=== PATIENT | female | born 1955 | race Caucasian/White ===

== ENCOUNTER → 2016-11-25 | Outpatient (CLI) | payer OTHER ==
[~2016-11-25] MED LIST: BETAMETHASONE 6 MG/ML, 5ML IM ONE; LIDOCAINE 1%, 20ML ONE; OMNIPAQUE 300 MG/ML, 10ML VIAL ONE; ROPivacaine/PF 0.2%, 10 ML ONE
== END | disposition home or self-care (01) ==
LOC: RAD 09:12
PROVIDERS: ATTEND Orthopaedic Surgery Adult Reconstructive Orthopaedic Surgery
DX: M16.11 Unilateral primary osteoarthritis, right hip (principal); M25.751 Osteophyte, right hip
CPT/HCPCS: 77002; J0702; J3490; Q9967; J2795

== ENCOUNTER 2017-01-16 05:36 | Inpatient (IN) | payer OTHER ==
[2017-01-13 15:41] LABS: HEMATOCRIT 41.4 % (34.6-47.8); HEMOGLOBIN 14.1 g/dL (11.7-16.4); WHITE BLOOD COUNT 6.8 x10^3/uL (3.4-10)
[2017-01-13 15:52] LABS: BLOOD UREA NITROGEN 9 mg/dL (7-18)
[2017-01-13 15:56] LABS: ASPARTATE AMINO TRANSFERASE 18 U/L (15-37)
[~2017-01-16] VITALS: Ht 167.6 cm; Wt 77.3 kg
[~2017-01-16 05:36] MED LIST changes: -BETAMETHASONE 6 MG/ML, 5ML IM ONE; -LIDOCAINE 1%, 20ML ONE; +No meds per pt.; -OMNIPAQUE 300 MG/ML, 10ML VIAL ONE; -ROPivacaine/PF 0.2%, 10 ML ONE
[2017-01-16] MEDS ORDERED: LACTATED RINGERS 1,000 ML IV SCH (06:08)
[2017-01-16] MEDS ORDERED: VANCOMYCIN PER PHARMACY MC STA (06:15)
[2017-01-16] MEDS ORDERED: FENTANYL PF 100 MCG/2ML ONE ×3 (06:16→10:20)
[2017-01-16] MEDS ORDERED: MIDAZOLAM 1 MG/ML, 2ML ONE ×2 (06:16→06:54)
[2017-01-16] MEDS ORDERED: PROPOFOL 50 ML ONE (06:16)
[2017-01-16] MEDS ORDERED: LIDOCAINE-MPF 2% ,5ML ONE (06:21)
[2017-01-16] MEDS ORDERED: DEXAMETHASONE 4 MG/ML, 1ML ONE ×2 (06:21→06:54)
[2017-01-16] MEDS ORDERED: ONDANSETRON 2MG/ML, 2ML ONE ×3 (06:21→10:20)
[2017-01-16] MEDS ORDERED: PROPOFOL 10 MG/ML, 20ML ONE (06:21)
[2017-01-16] MEDS ORDERED: CEFAZOLIN 1,000 MG ONE ×2 (06:21→06:54)
[2017-01-16] MEDS ORDERED: TRANEXAMIC ACID 100 MG/ML, 10ML ONE ×2 (06:23→06:24)
[2017-01-16] MEDS ORDERED: KETOROLAC 60 MG/2 ML ONE (06:23)
[2017-01-16] MEDS ORDERED: ROPIvacaine/PF 0.5%, 30 ML ONE (06:24)
[2017-01-16] MEDS ORDERED: EPINEPHRINE 1 MG/ML, 1ML ONE (06:24)
[2017-01-16] MEDS ORDERED: SODIUM CHLORIDE 0.9% 100 ML ONE (06:24)
[2017-01-16] MEDS ORDERED: BISACODYL 10 MG SUPP PR PRN (06:30)
[2017-01-16] MEDS ORDERED: ZOLPIDEM 5MG TABLET PO PRN (06:30)
[2017-01-16] MEDS ORDERED: VANCOMYCIN 1,500 MG in SODIUM CHLORIDE 0.9% 250 ML IV ONE (06:30)
[2017-01-16] MEDS ORDERED: DIPHENHYDRAMINE 50 MG CAPSULE PO PRN (06:30)
[2017-01-16] MEDS ORDERED: SCOPOLAMINE PATCH, 1.5MG PATCH.TD72 TD ONE ×2 (06:30→06:41)
[2017-01-16] MEDS ORDERED: ONDANSETRON 2MG/ML, 2ML IV PRN (06:30)
[2017-01-16] MEDS ORDERED: ONDANSETRON 4 MG TABLET PO PRN (06:30)
[2017-01-16] MEDS ORDERED: SENNA/DOCUSATE TABLET PO PRN (06:30)
[2017-01-16] MEDS ORDERED: MAGNESIUM HYDROXIDE 8%, 30ML UDC PO PRN (06:30)
[2017-01-16] MEDS ORDERED: ACETAMINOPHEN 650 MG/20.3 ML UDC PO PRN (06:30)
[2017-01-16] MEDS ORDERED: HYDROcodone/APAP 5/325 TABLET PO PRN (06:30)
[2017-01-16] MEDS ORDERED: ACETAMINOPHEN 500 MG TABLET PO STA (06:38)
[2017-01-16] MEDS ORDERED: FAMOTIDINE 20 MG TABLET PO STA (06:38)
[2017-01-16] MEDS ORDERED: SCOPOLAMINE PATCH, 1.5MG PATCH.TD72 TD STA (06:38)
[2017-01-16] MEDS ORDERED: OxyconTIN ER 10 MG TAB.ER PO STA (06:38)
[2017-01-16] MEDS ORDERED: PROPOFOL 10 MG/ML, 50ML ONE (06:54)
[2017-01-16] MEDS ORDERED: PHENYLEPHRINE 10 MG/ML ONE (06:54)
[2017-01-16] MEDS ORDERED: MIDAZOLAM 1 MG/ML, 2ML IV PRN (07:30)
[2017-01-16] MEDS ORDERED: ACETAMINOPHEN 325 MG TABLET PO PRN (07:30)
[2017-01-16] MEDS ORDERED: PROMETHAZINE 25 MG/ML, 1ML IV PRN (07:30)
[2017-01-16] MEDS ORDERED: MEPERIDINE/PF 25MG/0.5ML IVPush PRN (07:30)
[2017-01-16] MEDS ORDERED: ALBUTEROL/IPRATROPIUM 2.5MG/0.5MG, 3 ML NPPB PRN (07:30)
[2017-01-16] MEDS ORDERED: LABETALOL 5MG/ML, 20ML IV PRN (07:30)
[2017-01-16] MEDS ORDERED: OXYcodone 5 MG/5 ML ORAL.SOL UDC PO PRN (07:30)
[2017-01-16] MEDS ORDERED: hydrALAzine 20 MG/ML, 1ML IV PRN (07:30)
[2017-01-16] MEDS ORDERED: ONDANSETRON 2MG/ML, 2ML IVPush PRN (07:30)
[2017-01-16] MEDS ORDERED: DIAZEPAM 5 MG/ML, 2ML IVPush PRN (07:30)
[2017-01-16] MEDS ORDERED: HYDROmorphone 1 MG/ML, 1ML IV PRN (07:30)
[2017-01-16] MEDS ORDERED: OXYcodone 5 MG/5 ML ORAL.SOL UDC ONE (10:20)
[2017-01-16] MEDS: FENTANYL PF 100 MCG/2ML IV PRN ×2 (10:25→10:34)
[2017-01-16] MEDS: OXYcodone IR 5MG TABLET PO PRN ×3 (13:42→22:24)
[2017-01-16] MEDS: NS + 20MEQ KCL 1,000 ML IV SCH ×2 (16:27→18:53)
[2017-01-16] MEDS: CEFAZOLIN PMX 2GM/50ML 50 ML IVPB SCH (18:32)
[2017-01-16] MEDS: ASPIRIN 81 MG TABLET EC PO SCH (18:33)
[2017-01-16] MEDS: DOCUSATE 100 MG CAPSULE PO SCH (20:32)
[2017-01-16 21:05] VITALS: BP 98/64
[2017-01-17 00:32] VITALS: BP 106/60
[2017-01-17] MEDS: CEFAZOLIN PMX 2GM/50ML 50 ML IVPB SCH (01:48)
[2017-01-17] MEDS: OXYcodone IR 5MG TABLET PO PRN ×4 (03:30→16:27)
[2017-01-17 04:30] VITALS: BP 109/49
[2017-01-17 05:18] LABS: HEMOGLOBIN 11.6 g/dL (11.7-16.4)
[2017-01-17] MEDS: ASPIRIN 81 MG TABLET EC PO SCH (05:58)
[2017-01-17] MEDS ORDERED: DEXAMETHASONE 4 MG/ML, 1ML IVPush SCH (06:00)
[2017-01-17 07:20] VITALS: BP 110/74
[2017-01-17] MEDS: NS + 20MEQ KCL 1,000 ML IV SCH (07:23)
[2017-01-17] MEDS: DOCUSATE 100 MG CAPSULE PO SCH (07:27)
[2017-01-17] MEDS ORDERED: ASPI-496 PO (11:37)
[2017-01-17] MEDS ORDERED: DOCU-131 PO (11:38)
[2017-01-17] MEDS ORDERED: ACET650S21 PO (11:39)
[2017-01-17] MEDS ORDERED: TRAM50TA2 PO (11:41)
[2017-01-17] MEDS ORDERED: OXYC5TAB2 PO (11:41)
[2017-01-17] MEDS ORDERED: CELE200C PO (11:42)
[2017-01-17 15:36] VITALS: BP 119/71
== END 2017-01-17 17:10 | disposition home or self-care (01) | DRG 470 ==
LOC: ORIP 05:36 → 4NOR 10:57
PROVIDERS: ADMIT Orthopaedic Surgery; ATTEND Orthopaedic Surgery
PROC: 0SR90JZ Replacement of Right Hip Joint with Synthetic Substitute, Open Approach (ICD-10-PCS; principal; 2017-01-16 15:30)
DX: M16.11 Unilateral primary osteoarthritis, right hip (principal); Z96.641 Presence of right artificial hip joint; J45.909 Unspecified asthma, uncomplicated; Z88.6 Allergy status to analgesic agent; Z88.8 Allergy status to other drugs, medicaments and biological substances
CPT/HCPCS: 36415; 72170; 76001; 80053; 83036; 85014; 85018; 85025; 85610; 85730; 86850; 86900; 87081; 93005; C1713; J0171; J0690; J1100; J1885; J2250; J2405; J2704; J2795; J3010; J3480; J3490; C1776; J2370; J7120

== ENCOUNTER 2017-05-21 01:14 | Emergency (ER) | payer OTHER ==
[~2017-05-21] VITALS: Ht 167.6 cm; Wt 81.7 kg
[~2017-05-21 01:14] MED LIST changes: +ACET650S21 PO; +ASPI-496 PO; +CELE200C PO; +DOCU-131 PO; +OXYC5TAB2 PO; +TRAM50TA2 PO
[2017-05-21 01:17] VITALS: BP 152/74
[2017-05-21] MEDS ORDERED: LIDOCAINE-MPF 1%, 5ML ONE (01:29)
[2017-05-21] MEDS ORDERED: DIPH,PERTUSS(ACELL),TET VAC/PF 0.5 ML IM-VACC ONE ×2 (02:18→02:30)
[2017-05-21] MEDS ORDERED: BACITRACIN ZINC OINT 500U/GM, 0.9 GM ONE ×2 (02:32→02:39)
== END 2017-05-21 02:41 | disposition home or self-care (01) ==
LOC: ED 02:30
DX: S61.012A Laceration without foreign body of left thumb without damage to nail, initial encounter (principal); W25.XXXA Contact with sharp glass, initial encounter; Y93.G1 Activity, food preparation and clean up; Y99.8 Other external cause status; Y92.009 Unspecified place in unspecified non-institutional (private) residence as the place of occurrence of the external cause
CPT/HCPCS: 12041; 90471; 90715

== ENCOUNTER 2018-08-27 09:03 | Outpatient (CLI) | payer OTHER ==
[2018-08-27 09:14] LABS: BASOPHILS # (AUTO) 0.03 x10^3/uL (0-0.1); BASOPHILS % (AUTO) 1 % (0-1); EOSINOPHILS # (AUTO) 0.15 x10^3/uL (0-0.4); EOSINOPHILS % (AUTO) 4 % (1-7); LYMPHOCYTES # (AUTO) 1.41 x10^3/uL (1-3.4); LYMPHOCYTES % (AUTO) 35 % (22-44); MD NO; MEAN CORPUSCULAR HEMOGLOBIN 31.4 pg (27.0-34.8); MEAN CORPUSCULAR HGB CONC 33.6 g/dL (32.4-35.8); MEAN CORPUSCULAR VOLUME 93.2 fL (80-100); MEAN PLATELET VOLUME 8.2 fL (7.4-10.4); MONOCYTES # (AUTO) 0.51 x10^3/uL (0.2-0.8); MONOCYTES % (AUTO) 13 % (2-9); NEUTROPHILS # (AUTO) 1.94 x10^3/uL (1.8-6.8); NEUTROPHILS % (AUTO) 48 % (42-75); PLATELET COUNT 308 x10^3/uL (130-400); RED BLOOD COUNT 4.41 x10^6/uL (3.82-5.3); RED CELL DISTRIBUTION WIDTH 13.2 % (9.6-15.2)
[2018-08-27 09:22] LABS: ALANINE AMINOTRANSFERASE 23 U/L (12-78); ALBUMIN 4.2 g/dL (3.4-5.0); ANION GAP 6 mmol/L (5-15); CALCIUM 8.8 mg/dL (8.5-10.1); CHLORIDE 103 mmol/L (98-107); CREATININE 0.88 mg/dL (0.55-1.02)
[2018-08-27 09:25] LABS: ALKALINE PHOSPHATASE 65 U/L (45-117); BILIRUBIN,TOTAL 0.8 mg/dL (0.2-1.0); CHOL/HDL RATIO 3.2; CHOLESTEROL, TOTAL 209 mg/dL (140-239); HDL CHOL % 32 % (28-40); HDL CHOLESTEROL (DIRECT) 66 mg/dL (40-60); LDL CHOLESTEROL,CALCULATED 117 mg/dL (54-169); LDL/HDL RATIO 1.8 (0.5-3.0); TOTAL PROTEIN 7.4 g/dL (6.4-8.2); TRIGLYCERIDES 132 mg/dL (50-200); VLDL CHOLESTEROL 26 mg/dL (0-25)
== END 2018-08-27 23:59 | disposition home or self-care (01) ==
LOC: LAB 09:03
PROVIDERS: ATTEND Internal Medicine
DX: J20.9 Acute bronchitis, unspecified (principal); E78.00 Pure hypercholesterolemia, unspecified; M54.9 Dorsalgia, unspecified
CPT/HCPCS: 36415; 80053; 80061; 85025

== ENCOUNTER → 2020-01-30 | Outpatient (CLI) | payer OTHER | END | disposition home or self-care (01) | LOC: CFH 13:33 | PROVIDERS: ATTEND Internal Medicine | DX: Z12.31 Encounter for screening mammogram for malignant neoplasm of breast (principal) | CPT/HCPCS: 77063; 77067 ==

== ENCOUNTER → 2020-03-09 | Outpatient (CLI) | payer OTHER ==
[2020-03-09 08:42] LABS: ALANINE AMINOTRANSFERASE 24 U/L (12-78); ANION GAP 5 mmol/L (5-15); CHLORIDE 105 mmol/L (98-107); CHOLESTEROL, TOTAL 231 mg/dL (140-239); CREATININE 1.06 mg/dL (0.55-1.02)
[2020-03-09 08:44] LABS: ALKALINE PHOSPHATASE 61 U/L (45-117); BILIRUBIN,TOTAL 1.2 mg/dL (0.2-1.0); CHOL/HDL RATIO 3.1; HDL CHOL % 32 % (28-40); HDL CHOLESTEROL (DIRECT) 74 mg/dL (40-60); LDL CHOLESTEROL,CALCULATED 135 mg/dL (54-169); LDL/HDL RATIO 1.8 (0.5-3.0); TOTAL PROTEIN 7.3 g/dL (6.4-8.2); TRIGLYCERIDES 109 mg/dL (50-200); VLDL CHOLESTEROL 22 mg/dL (0-25)
[2020-03-09 08:47] LABS: MICROSCOPIC AUTO
== END | disposition home or self-care (01) ==
LOC: LAB 08:16
PROVIDERS: ATTEND Internal Medicine
DX: M25.512 Pain in left shoulder (principal); E78.00 Pure hypercholesterolemia, unspecified; J30.9 Allergic rhinitis, unspecified; M25.551 Pain in right hip; M54.9 Dorsalgia, unspecified
CPT/HCPCS: 36415; 80053; 80061; 81001; 87086

== ENCOUNTER → 2020-09-18 | Outpatient (CLI) | payer OTHER ==
[2020-09-18 11:43] LABS: ANION GAP 6 mmol/L (5-15); CALCIUM 9.4 mg/dL (8.5-10.1); CHLORIDE 99 mmol/L (98-107)
[2020-09-18 11:44] LABS: CREATININE 0.71 mg/dL (0.55-1.02)
== END | disposition home or self-care (01) ==
LOC: LAB 11:10
PROVIDERS: ATTEND Internal Medicine
DX: R94.4 Abnormal results of kidney function studies (principal)
CPT/HCPCS: 36415; 80048